=== PATIENT | female | born 1945 | race Caucasian/White ===

== ENCOUNTER 2020-03-08 15:31 | Outpatient (CLI) | payer BC, SELFPAY ==
--- NOTE | ~2020-03-08 | MM_ITS ---
EXAMINATION: MM screening [facility] BI w alex HISTORY: Screening mammogram TECHNIQUE: Craniocaudal and mediolateral oblique 3-D tomosynthesis images were obtained and synthetic 2-D images were generated. CAD analysis was submitted and interpreted. COMPARISON: 02/17/2019, 01/14/2018, 11/06/2016 bilateral digital screening mammogram examinations BREAST PARENCHYMAL COMPOSITION: There are scattered areas of fibroglandular density. FINDINGS: Occasional benign calcifications. There is no evidence of suspicious mass, calcification, o r architectural distortion to suggest malignancy in either breast. There has been no suspicious inter santana change. IMPRESSION: 1. No mammographic evidence of malignancy. 2. Recommend routine screening mammography in one year. BI-RADS Category 2: Benign finding(s). Reviewed, dictated and finalized at location A.
== END 2020-03-08 15:32 | disposition home or self-care (01) ==
PROVIDERS: PCP Internal Medicine; Visit Provider Obstetrics & Gynecology
DX: Z12.31 Encounter for screening mammogram for malignant neoplasm of breast (principal)
CPT/HCPCS: 77063; 77067

== ENCOUNTER 2021-04-19 12:44 | Outpatient (CLI) | payer BC, SELFPAY ==
--- NOTE | ~2021-04-19 | DEXA_ITS ---
Bone Density Report Name: Greta Leach Age: 76 Sex: Female Ethnicity: White Date of : 1945 Indication: postmenopausal osteoporosis; monitoring treatment; height loss; prior fracture; cancer; hysterectomy; Referring Provider: ALLISON WEST Study: Bone densitometry was performed. Exam Date: April 19, 2021 Accession number: [id number] Bone Density: Region BMD T-score Z-score Classification AP Spine (L1-L4) 0.864 -1.7 0.7 Osteopenia Femoral Neck (Left) 0.682 -1.5 0.5 Osteopenia Total Hip (Left) 0.904 -0.3 1.4 Normal Total Hip Bilateral Avg 0.869 -0.6 1.1 Normal Femoral Neck (Right) 0.677 -1.6 0.5 Osteopenia Total Hip (Right) 0.832 -0.9 0.8 Normal World Health Organization criteria for BMD impression classify patients as: Normal (T-score at or above -1.0), Osteopenia (T-score between -1.0 and -2.5), or Osteoporosis (T-score at or below -2.5). 10-year Fracture Risk: FRAX not reported because: Treated for osteoporosis Previous Exams: Region Exam Age BMD T-score BMD Change BMD Change Date g/cm2 vs Baseline vs Previous AP Spine(L1-L4) 04/19/2021 76 0.864 -1.7 0.090(11.6%)* 0.090(11.6%)* 04/23/2015 70 0.774 -2.5 Total Hip(Left) 04/19/2021 76 0.904 -0.3 -0.038(-4.0%)* 0.045(5.2%)# 06/10/2018 73 0.859 -0.7 -0.083(-8.8%)# -0.083(-8.8%)# 04/23/2015 70 0.941 0.0 Total Hip(Right) 04/19/2021 76 0.832 -0.9 -0.030(-3.5%)* -0.007(-0.9%)# 06/10/2018 73 0.839 -0.8 -0.023(-2.7%)# -0.023(-2.7%)# 04/23/2015 70 0.862 -0.7 *Denotes significance at 95% confidence level, LSC for AP Spine = 0.022 g/cm2, LSC for Total Hip = 0.027 g/cm2 Clinical Information Provided by Patient: Has had a low trauma fracture Is being treated for osteoporosis Has used the following medications: Fosamax (i.e. alendronate), Vitamin D, Calcium Has the following medical conditions: Cancer, Hysterectomy, melanoma Patient maximum height was 64 Menopause Age: 45 Onset of menses at age 15 Number of children 2 Impression: The patient has low bone mass, based on the Total Spine T-score. The patient has risk factors, including: previous fracture. No significant bone loss was observed. Discussion: PATIENT UNDER TREATMENT WITH NO SIGNIFICANT BMD LOSS SINCE LAST EXAM. In an untreated patient, BMD typically declines with age. A lack of decline or gain is usually a sign that treatment is efficacious and fracture risk is reduced. It is important to a
== END 2021-04-19 12:45 | disposition home or self-care (01) ==
PROVIDERS: PCP Physician Assistant; Visit Provider Obstetrics & Gynecology
DX: Z78.0 Asymptomatic menopausal state (principal); M85.88 Other specified disorders of bone density and structure, other site; M85.852 Other specified disorders of bone density and structure, left thigh; M85.851 Other specified disorders of bone density and structure, right thigh
CPT/HCPCS: 77080

== ENCOUNTER 2021-06-29 08:25 | Outpatient (CLI) | payer BC, SELFPAY ==
--- NOTE | ~2021-06-29 | MM_ITS ---
EXAMINATION: MM screening [facility] BI w alex HISTORY: Screening TECHNIQUE: Craniocaudal and mediolateral oblique 3-D tomosynthesis images were obtained and synthetic 2-D images were generated. CAD analysis was submitted and interpreted. COMPARISON: Comparison to multiple prior studies sequentially, with oldest reviewed study dated 10/23/2014. BREAST PARENCHYMAL COMPOSITION: There are scattered areas of fibroglandular density. FINDINGS: There is no evidence of suspicious mass, calcification, or architectural distortion to sugg est malignancy in either breast. There has been no suspicious interval change. IMPRESSION: 1. No mammographic evidence of malignancy. 2. Recommend routine screening mammography in one year. BI-RADS Category 1: Negative. Reviewed, dictated and finalized at location A.
== END 2021-06-29 08:26 | disposition home or self-care (01) ==
PROVIDERS: PCP Physician Assistant; Visit Provider Obstetrics & Gynecology
DX: Z12.31 Encounter for screening mammogram for malignant neoplasm of breast (principal)
CPT/HCPCS: 77063; 77067

== ENCOUNTER 2022-05-09 16:29 | Outpatient (CLI) | payer BC, SELFPAY ==
--- NOTE | ~2022-05-09 | XR_ITS ---
EXAM: XR wrist LT min 3V DATE: 05/09/2022 16:56 HISTORY: M25.432 - Effusion, left wrist, MEDIAL SIDED, HX ARTHRITIS . COMPARISON: None available. FINDINGS: Decreased mineralization. No fracture or dislocation. No lytic or blastic lesion. Severe n arrowing between the radius and lunate, with subchondral sclerosis and subchondral cyst formation. Ge neralized sclerosis of the lunate ulnar positive variance, with sclerosis along the distal ulna. No e rosion or periosteal change. Soft tissues within normal limits. 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 Reviewed, dictated and finalized at location K. 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
== END 2022-05-09 16:30 | disposition home or self-care (01) ==
PROVIDERS: PCP Internal Medicine; Visit Provider Physician Assistant
DX: M25.432 Effusion, left wrist (principal)
CPT/HCPCS: 73110

== ENCOUNTER 2023-02-14 14:25 | Outpatient (CLI) | payer BC, SELFPAY ==
--- NOTE | ~2023-02-14 | MM_ITS ---
EXAMINATION: MM screening [facility] BI w alex HISTORY: Screening mammogram TECHNIQUE: Craniocaudal and mediolateral oblique 3-D tomosynthesis images were obtained and synthetic 2-D images were generated. CAD analysis was submitted and interpreted. COMPARISON: 06/29/2021, 03/08/2022, bilateral screening mammogram examinations BREAST PARENCHYMAL COMPOSITION: There are scattered areas of fibroglandular density. FINDINGS: Chronic scattered bilateral benign calcifications. There is no evidence of suspicious mass, calcification, or architectural distortion to suggest malignancy in either breast. There has been no suspicious interval change. IMPRESSION: 1. No mammographic evidence of malignancy. 2. Recommend routine screening mammography in one year. BI-RADS Category 2: Benign finding(s). Reviewed, dictated and finalized at location A.
== END 2023-02-14 14:26 | disposition home or self-care (01) ==
LOC: ANHIMG 14:28
PROVIDERS: PCP Internal Medicine; Visit Provider Obstetrics & Gynecology
DX: Z12.31 Encounter for screening mammogram for malignant neoplasm of breast (principal)
CPT/HCPCS: 77063; 77067

== ENCOUNTER → 2023-08-14 14:43 | Outpatient (CLI) | payer BC, SELFPAY ==
--- NOTE | ~2023-08-14 | DEXA_ITS ---
Bone Density Report Name: MINE HAN Age: 78 Sex: Female Ethnicity: White Date of : 1945 Indication: postmenopausal; screening for osteoporosis; height loss; prior fracture; hysterectomy; Referring Provider: ALLISON WEST Study: Bone densitometry was performed. Exam Date: August 14, 2023 Accession number: [id number] Bone Density: Region BMD T-score Z-score Classification AP Spine (L1-L4) 0.891 -1.4 1.1 Osteopenia Femoral Neck (Left) 0.675 -1.6 0.6 Osteopenia Total Hip (Left) 0.817 -1.0 0.8 Normal Femoral Neck (Right) 0.619 -2.1 0.1 Osteopenia Total Hip (Right) 0.711 -1.9 0.0 Osteopenia Total Hip Mean 0.764 -1.5 0.4 Osteopenia World Health Organization criteria for BMD impression classify patients as: Normal (T-score at or above -1.0), Osteopenia (T-score between -1.0 and -2.5), or Osteoporosis (T-score at or below -2.5). 10-year Fracture Risk(1): Major Osteoporotic Fracture 21% Hip Fracture 5.3% Reported Risk Factors: [place] (), Neck BMD=0.619, BMI=26.1, previous fracture (1) FRAX(R) Version 3.08. Fracture probability calculated for an untreated patient. Fracture probability may be lower if the patient has received treatment. Clinical Information Provided by Patient: Has had a low trauma fracture Has used the following medications: Vitamin D, Calcium, MTV Has the following medical conditions: Hysterectomy Patient maximum height was 64.0 Menopause Age: 42 No regular weight bearing exercise Onset of menses at age 15 Number of children 2 Impression: The patient has low bone mass, based on the Right Femoral Neck T-score. The patient has an estimated ten-year risk of hip fracture of 5.3% and an estimated ten-year risk of major fracture of 21%, based on the WHO FRAX algorithm. The patient has risk factors, including: previous fracture. Discussion: BONE DENSITY IS LOW AT ONE OR MORE SKELETAL SITES. THE PATIENT'S BMD AND CLINICAL RISK FACTORS CONTRIBUTE TO THIS PATIENT'S HIGH RISK OF FRACTURE. This patient's lowest T-score is low at one or more skeletal sites. It meets the World Health Organization's (WHO) criteria for ?low bone mass? (T-score between -1.0 and -2.5). The patient's 10-year risk of hip fracture and 10 year risk of a major osteoporotic fracture as calculated by FRAX exceeds the threshold where pharmacological therapy is recommended by the National Osteoporosis Foundation (NOF). However, all treatment decisions require clinical judgment and consideration of individual patient factors, including patient preferences, comorbidities, previous drug use, risk factors not captured in the FRAX model (e.g., frailty, falls, vitamin D deficiency, increased bone turnover, interval significant decline in bone density) and possible under or overestimation of fracture risk b
== END ==
PROVIDERS: PCP Physician Assistant; Visit Provider Obstetrics & Gynecology
DX: M85.88 Other specified disorders of bone density and structure, other site (principal); M85.852 Other specified disorders of bone density and structure, left thigh; M85.851 Other specified disorders of bone density and structure, right thigh
CPT/HCPCS: 77080

== ENCOUNTER 2024-02-06 19:17 | Emergency (ER) | payer BC, SELFPAY ==
[2024-02-06 19:20] VITALS: BP 152/81; PULSE 88; RESP 15; TEMP 36.7; O2SAT 99
[2024-02-06 19:39] LABS: Basophils Percent Auto 0.2 % (0.2-1.2); Eosinophils Percent Auto 0.4 % (0-4.4); Hemoglobin 14.5 g/dL (12.0-15.0); Immature Granulocyte Absolute 0.02 K/mm3 (0.00-0.031); Immature Granulocyte Percent A 0.4 % (0-0.5); Lymphocytes Absolute Auto 1.05 K/mm3 (0.9-3.2); Lymphocytes Percent Auto 18.4 % (18.3-44.2); Mean Corpuscular HGB Conc 33.7 g/dl (32-36); Mean Corpuscular Hemoglobin 30.2 pg (26-34); Mean Corpuscular Volume 89.6 fl (80-100); Mean Platelet Volume 9.2 fl (7.4-10.4); Monocytes Absolute Auto 0.4 K/mm3 (0.1-0.6); Monocytes Percent Auto 6.8 % (2.6-8.5); Neutrophils Absolute Auto 4.2 K/mm3 (1.3-6.7); Neutrophils Percent Auto 73.8 % (45.5-73.1); Platelet Count Result 270 k/mm3 (150-375); Red Cell Distribution Width 12.9 % (11.5-14.5); White Blood Count 5.7 K/mm3 (4.5-10.0)
[2024-02-06 19:49] LABS: Alanine Aminotransferase 19 U/L (6-35); Albumin Level 4.2 g/dL (3.5-5.1); Alkaline Phosphatase 103 U/L (38-126); Anion Gap 6 mmol/L (4-12); Aspartate Amino Transferase 26 U/L (14-36); Bilirubin,Total 0.4 mg/dL (0.2-1.3); Blood Urea Nitrogen 13 mg/dL (7-17); Calcium 9.1 mg/dL (8.4-10.2); Carbon Dioxide 26 mmol/L (22-30); Chloride 103 mmol/L (98-107); Estimated CRCL calculation 66 ml/min; Estimated Glomerular Filt Rate > 60; Glucose 102 mg/dL (65-110); Lipase 102 U/L (23-300); Potassium 3.9 mmol/L (3.4-5.0); Sodium 135 mmol/L (137-145)
[2024-02-06] MEDS: SODIUM CHLORIDE 0.9% IV 1,000 ML 999 ML IV CONT ×2 (20:21→21:22)
[2024-02-06] MEDS: ONDANSETRON INJ 4 MG/2 ML VIAL IV PUSH (20:21)
--- NOTE | 2024-02-06 20:25 | ED.GENADULT ---
HPI - General Adult General Chief complaint: Nausea/Vomiting/Diarrhea Stated complaint: nausea, vomiting, diarrhea, headache Time Seen by Provider: 02/06/24 20:05 History of Present Illness HPI narrative: Patient is a 78-year-old female who presents emergency department this evening complaining of nausea, vomiting and diarrhea. Patient states that symptoms initially started on Sunday and lasted until Sunday. Patient started to feel much better on Sunday and then yesterday evening she when out and had a full dinner with her and when she went to sleep she woke up 5 in the morning and started having nausea, vomiting and diarrhea again. Patient states that her 13-year-old granddaughter has had similar symptoms and the school told that there are a lot of viruses going around. Patient denies any fevers or chills at home and denies any respiratory symptoms. She denies any chest pain and denies any abdominal pain at this time. No additional symptoms or concerns at this time. Related Data Home Medications Medication Instructions Recorded Confirmed multivitamin (Daily Multi-Vitamin 1 tablet PO DAILY 06/10/20 11/28/23 tablet) cholecalciferol (vitamin D3) 25 25 mcg PO DAILY 06/13/21 11/28/23 mcg (1,000 unit) capsule calcium carbonate (Calcium 600) 600 mg PO DAILY 06/05/22 11/28/23 acetaminophen 650 mg 650 mg PO Q12H 01/12/23 11/28/23 tablet,extended release (Tylenol Arthritis Pain) soft lens rinse,store solution 01/12/23 11/28/23 Allergies Allergy/AdvReac Type Severity Reaction Status Date / Time cephalexin Allergy Unknown Unknown Verified 02/06/24 20:20 Review of Systems Review of Systems: All systems are reviewed and are negative unless stated otherwise in the HPI. 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 Coronel at [facility] History of hysterectomy S/P right knee surgery Family History Family History Father Malignant neoplasm of prostate Family history of lung cancer Patient's father is , Onset Age: 75 Hypertension Mother Acute myocardial infarction, Onset Age: 76 Family history of congenital heart disease Family history of arthritis Hypertension Family history of type 2 diabetes mellitus Other Heart disease Social History Social History Smoking status: Never smoker Second hand tobacco smoke exposure: No Alcohol intake: current Substance use type: does not use Lack of Transportation: No Lack of Food: Never True Current Housing: I Have Housing Concerned About Future Housing: No Difficulty Paying Gas/Electric Bills: No Difficulty Paying for Meds: No Currently Unemployed: No Education: High School Diploma/GED Difficulty w/ Childcare or Family Care: No Occupation/Education: retired Gender identity (if verbalized by the patient): Female Sexual Orientation (if Verbalized by the Patient): Straight or Heterosexual Exam Narrative: General: Alert, awake, afebrile, in no acute distress. HEENT: PERRL, no rhinorrhea, no post nasal drip, oropharynx clear. Cardiovascular: Regular rate and rhythm, no murmurs, rubs or gallops, no periph
[2024-02-06 20:26] VITALS: PULSE 74; RESP 18; O2SAT 94
[2024-02-06 21:15] VITALS: BP 146/67; PULSE 64; RESP 13; O2SAT 94
[2024-02-06 21:27] LABS: Influenza A QL RT-PCR Negative (Negative); Influenza B QL RT-PCR Negative (Negative); RSV RNA, RT-PCR Negative (Negative); SARS-CoV-2 RNA PCR Negative (Negative)
[2024-02-06 21:56] LABS: Appearance Urine Clear (Clear); Bilirubin Urine Negative (Negative); Blood Urine Negative (Negative); Color Urine Yellow (Yellow); Glucose Urine UA Negative (Negative); Ketones Urine 1+ mg/dL (Negative); Leukocyte Esterase Ur Negative LEU/UL (Negative); Nitrate Urine Negative (Negative); Protein Urine Negative (Negative); Specific Grav Ur 1.006 (1.001-1.035); Urobilinogen Urine 0.2 mg/dL (<2.0); pH Urine 7.5 (5.0-9.0)
[2024-02-06 22:24] LABS: Add Urine Microscopic? NO
== END 2024-02-06 22:35 | disposition home or self-care (01) ==
PROVIDERS: Emergency Medicine; Emergency Provider Emergency Medicine; PCP Physician Assistant
DX: K52.9 Noninfective gastroenteritis and colitis, unspecified (principal); Z20.822 Contact with and (suspected) exposure to COVID-19; E78.00 Pure hypercholesterolemia, unspecified; E55.9 Vitamin D deficiency, unspecified; M19.032 Primary osteoarthritis, left wrist; M19.041 Primary osteoarthritis, right hand; Z85.820 Personal history of malignant melanoma of skin; Z98.49 Cataract extraction status, unspecified eye; Z90.710 Acquired absence of both cervix and uterus
CPT/HCPCS: 36415; 80053; 81003; 83690; 83735; 85025; 87637; 96361; 96374; 99284; J2405; J7030

== ENCOUNTER 2024-04-01 14:16 | Outpatient (CLI) | payer BC, SELFPAY ==
--- NOTE | ~2024-04-01 | XR_ITS ---
XR hip RT min 2V Ordering provider: Vinayak Loera APRN History: . M25.551 - Pain in right hip, LATERAL POSTERIOR PAIN, NO INJ . Comparison: None. FINDINGS: BONES: No acute fracture or dislocation. HIP JOINT SPACES: Normal. SACROILIAC JOINT SPACES/LUMBAR SPINE: The sacroiliac joint spaces are normal. Mild degenerative rodríguez es of the visualized lower lumbar spine. PUBIC SYMPHYSIS: Pubic symphysitis. SOFT TISSUES: Normal. IMPRESSION: No acute osseous abnormality pelvis and right hip. Reviewed, dictated and finalized at location A.
== END 2024-04-01 14:17 | disposition home or self-care (01) ==
PROVIDERS: PCP Nurse Practitioner; Visit Provider Nurse Practitioner
DX: M25.551 Pain in right hip (principal)
CPT/HCPCS: 73502

== ENCOUNTER 2024-04-10 13:27 | Outpatient (CLI) | payer BC, SELFPAY ==
--- NOTE | ~2024-04-10 | US_ITS ---
EXAMINATION: US soft tissue groin LT DATE: 04/10/2024 13:53 INDICATION: R19.09 - Other intra-abdominal and pelvic swelling, mass ... . TECHNIQUE: Grayscale and Doppler ultrasound images of the left groin were obtained. COMPARISON: None. FINDINGS: The region of clinical concern in the left groin was sonographically interrogated, revealin g no solid or cystic mass. No abnormality elicited with the Valsalva maneuver. IMPRESSION: No sonographic abnormality detected in the area of clinical concern. Reviewed, dictated and finalized at location K.
== END 2024-04-10 13:28 ==
LOC: MICIMG 13:28
PROVIDERS: PCP Nurse Practitioner; Visit Provider Nurse Practitioner Family
DX: R19.09 Other intra-abdominal and pelvic swelling, mass and lump (principal)
CPT/HCPCS: 76882

== ENCOUNTER 2024-04-29 12:19 | Outpatient (CLI) | payer BC, SELFPAY ==
--- NOTE | ~2024-04-29 | MM_ITS ---
EXAMINATION: MM screening [facility] BI w alex HISTORY: Screening TECHNIQUE: Craniocaudal and mediolateral oblique 3-D tomosynthesis images were obtained and synthetic 2-D images were generated. CAD analysis was submitted and interpreted. COMPARISON: Comparison to multiple prior studies sequentially, with oldest reviewed study dated 11/06. BREAST PARENCHYMAL COMPOSITION: Not dense: There are scattered areas of fibroglandular density. FINDINGS: There is no evidence of suspicious mass, calcification, or architectural distortion to sugg est malignancy in either breast. There has been no suspicious interval change. IMPRESSION: 1. No mammographic evidence of malignancy. 2. Recommend routine screening mammography in one year. BI-RADS Category 1: Negative Reviewed, dictated and finalized at location B.
== END 2024-04-29 12:20 ==
PROVIDERS: PCP Nurse Practitioner; Visit Provider Obstetrics & Gynecology
DX: Z12.31 Encounter for screening mammogram for malignant neoplasm of breast (principal)
CPT/HCPCS: 77063; 77067

== ENCOUNTER 2024-05-16 07:44 | Outpatient (CLI) | payer BC, SELFPAY ==
--- NOTE | 2024-05-16 07:52 | ECG_ITS ---
Test Date: 2024-05-16 07:57:45 Measurements Intervals [place] Rate: 62 P: 33 OR: 174 QRS: -6 QRSD: 91 T: 22 QT: 383 QTc: 389 Interpretive Statements SINUS RHYTHM MINIMAL VOLTAGE CRITERIA FOR LVH, CONSIDER NORMAL VARIANT [MEETS CRITERIA IN ONE OF: R(aVL), S(V1), R(V5), R(V5/V6)+S(V1)] No previous ECG available for comparison Electronically Signed On 05-17-2024 14:18:13 CDT by Homero Mendez M.D.
== END 2024-05-16 07:45 | disposition home or self-care (01) ==
PROVIDERS: PCP Nurse Practitioner; Visit Provider Surgery
DX: Z01.818 Encounter for other preprocedural examination (principal); I10 Essential (primary) hypertension; K40.90 Unilateral inguinal hernia, without obstruction or gangrene, not specified as recurrent; Z98.890 Other specified postprocedural states
CPT/HCPCS: 36415; 86850; 86870; 86880; 86900; 86901; 86902; 86906; 86971; 93005

== ENCOUNTER 2024-05-21 01:43 | Day surgery (SDC) | payer BC, SELFPAY ==
[2024-05-15 09:10] VITALS: BMI 25.8
--- NOTE | 2024-05-15 09:28 | PC.NURSE ---
Report to the Outpatient Waiting Room, entrance under the green pavilion located off [facility], at time __10:00am on date __05/21/24 . Planned Procedure Time: ___12:00pm .? Time changes happen often and if your time is changed the preop area will call you the afternoon before. - You and your visitor will be asked to self-screen and do not enter if you have any COVID symptoms. Please call surgeon if you need to reschedule. - A mask is optional within the hospital at this time. Patients may have clear liquids (water, carbonated beverages, clear teas, apple juice) until 3 hours prior to surgery ( 0900am) with a maximum of 20 ounces. - No food from midnight until time of surgery and no smoking Take only the following medications with a SIP of water on the morning of surgery: ___Tylenol if needed DO NOT STOP ANY OF YOUR OTHER PRESCRIPTION MEDICATIONS PRIOR TO SURGERY EXCEPT THE FOLLOWING Medications to discontinue per physician Hold all vitamins, supplements,probiotics 3 days prior to surgery per Anesthesia Date to take last dose___05/17/23 Please no make-up, nail latvian, hairspray, perfume, deodorant, or body powder the day of surgery.? No jewelry (including any body piercings) or valuables the day of surgery, leave them at home.? Please take a shower or bath the night before, or the morning of, surgery with an antibacterial soap.? Wear comfortable, loose fitting clothing.? Children are encouraged to wear pajamas. - Jewelry must be removed prior to entering the operating room.? Rings and piercings that are not removed may be cut off. - The hospital will not accept responsibility for valuables.? - Please leave all valuables, including medications, at home the day of surgery. If you are going home after surgery, a licensed local company intermodal truck driver must drive you home.? - NO public transportation without another adult if you receive anesthesia. - We recommend that an adult stay with you for 24 hours following discharge. - We also recommend that you do not drive, make important decision, drink alcoholic beverages, or take any drugs that were not prescribed by your health care provider for at least 24 hours after your discharge time. Follow any additional instructions given to you from your surgeon. Telephone instructions given to patient and asked if any additional questions and then verbalized understanding. Patient advised to call surgeon office or pre surgery nurse liaison [phone] if any additional questions.
[2024-05-21] VITALS (11 sets, daily range): BP systolic 112–155; BP diastolic 53–73; PULSE 58–74; RESP 10–20; TEMP 36.2–36.6; O2SAT 93–100
--- NOTE | 2024-05-21 10:08 | WPDHPUPDATE1 ---
History and Physical Update Update Date/Time: 05/21/24 10:08 History and Physical has been reviewed, including an updated exam of the patient. There are NO changes in the patient's condition. Risks, benefits, and alternatives have been discussed and questions answered. Patient agrees to proceed with procedure.
[2024-05-21] MEDS: LACTATED RINGERS 1,000 ML 30 ML IV CONT ×2 (10:15→12:02)
[2024-05-21] MEDS: KETOROLAC 15 MG/ML VIAL (*BKC) IV PUSH (10:18)
--- NOTE | 2024-05-21 10:24 | WPDANESEPPF ---
Anes - Initial Pre Proc Eval Procedure: Operation Date: 05/21/24 12:00 Proposed Procedures p Laparoscopic Left Inguinal Hernia Repair with Mesh, Davinci Assisted - Matti Correa DO Date/Time: 05/21/24 10:24 Surgeon: Matti Correa DO Pre Op Diagnosis: Left Inguinal Hernia Patient Data Age: 79 Gender: F Height: 1.57 m Weight: 64 kg Allergies Allergy/AdvReac Type Severity Reaction Status Date / Time cephalexin Allergy Intermediate rash , Verified 05/21/24 09:54 swelling Home Medications Medication Instructions Recorded Confirmed Type multivitamin (Daily Multi-Vitamin 1 tablet PO DAILY 06/10/20 05/21/24 History tablet) cholecalciferol (vitamin D3) 25 25 mcg PO DAILY 06/13/21 05/21/24 History mcg (1,000 unit) capsule calcium carbonate (Calcium 600) 600 mg PO DAILY 06/05/22 05/21/24 History acetaminophen 650 mg 650 mg PO Q12H 01/12/23 05/21/24 History tablet,extended release (Tylenol Arthritis Pain) soft lens rinse,store solution 01/12/23 04/24/24 History lisinopril 10 mg tablet 10 mg PO DAILY #90 tabs 07/15/23 05/21/24 Rx pravastatin 40 mg tablet 40 mg PO DAILY #90 tabs 08/11/23 05/21/24 Rx omeprazole 40 mg capsule,delayed 40 mg PO DAILY #90 caps 10/07/23 05/21/24 Rx release meloxicam 15 mg tablet 15 mg PO DAILY PRN pain, mild #90 04/28/24 05/21/24 Rx tabs mecobalamin (vitamin B12) 1,000 1,000 mcg PO DAILY 05/15/24 05/21/24 History mcg chewable tablet (B12 Active) Laboratory Tests 05/16/24 08:06 Enhanced Crossmatch See Detail Patient hx anesthesia problems: post op nausea/vomiting Family hx anesthesia problems: none Results Review: All pre-operative results and documents have been reviewed as part of the pre-operative evaluation. 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 Coronel at [facility] History of hysterectomy S/P right knee surgery Family History Family History Father Malignant neoplasm of prostate Family history of lung cancer Patient's father is , Onset Age: 75 Hypertension Mother Acute myocardial infarction, Onset Age: 76 Family history of congenital heart disease Family history of arthritis Hypertension Family history of type 2 diabetes mellitus Other Heart disease Social History Social History Smoking status: Never smoker Second hand tobacco smoke exposure: No Alcohol intake: current Drinks per week: 1 Substance use type: does not use Lack of Transportation: No Lack of Food: Never True Current Housing: I Have Housing Concerned About Future Housing: No Difficulty Paying Gas/Electric Bills: No Difficulty Paying for Meds: No Currently Unemployed: No Education: High School Diploma/GED Difficulty w/ Childcare or Family Care: No Living arrangements: with family Additional living arrangements comments: [place] Occupation/Education: retired Gender identity (if verbalized by the patient): Female Sexual Orientation (if Verbalized by the Patient): Straight or Heterosexual Spiritual care concerns: No Anes - Eval Final PreProcedure D
[2024-05-21] MEDS: CLINDAMYCIN 900 MG/D5W 50 ML 900 MG/50 ML PIGGYBACK 50 MG IVPB (10:36)
[2024-05-21] MEDS: BUPIVACAINE/EPINEPHRINE 0.5% 10 ML VIAL 30 ML INFILTRATE (11:04)
--- NOTE | 2024-05-21 11:59 | W.PM.PROC2 ---
Procedure Note - Detailed Date of Procedure 05/21/24 Pre-op Diagnosis Left Inguinal Hernia Post-op Diagnosis Other (Bilateral inguinal hernia (direct)) Procedure Performed Laparoscopic bilateral inguinal hernia repair with mesh, da Mily assisted Surgeon Matti Correa DO Anesthesia General and Local (0.5% bupivacaine with epinephrine) Indications This is a 79-year-old woman who presented with a left groin mass. This was a palpable bulge but did seem to reduce when laying down. She was having some discomfort in this area as well. An ultrasound was obtained which showed evidence of a fat containing left inguinal hernia. Discussions were made with the patient about treatment options and decision made to proceed with robotic assisted laparoscopic left inguinal hernia repair with mesh. Findings Upon inspecting the abdomen laparoscopically, the patient did have a moderate-sized direct left inguinal hernia containing preperitoneal fat. She also had a small direct right inguinal hernia containing preperitoneal fat. Decision was made to repair bilateral inguinal hernias. A robotic transabdominal preperitoneal approach was utilized for repair. Once a wide enough preperitoneal pocket was created, I then placed large 3DMax mid mesh overlying each myopectineal orifice. No specimens were obtained for pathology. Description of Procedure Procedure as well as risks, benefits, and alternatives were discussed with the patient. Written consent was obtained and placed in chart prior to procedure. Patient was brought back to surgical suite. She was placed supine on operating table. Time-out was done to confirm patient and procedure. She was then intubated by Anesthesia Department. Her abdomen was prepped and draped in sterile fashion using chlorhexidine prep. 0.5% bupivacaine with epinephrine was infiltrated at each location for incision. An 8 mm incision was made in the left lateral abdomen, and a 5 mm Optiview trocar was advanced through the abdominal layers under direct visualization. Once inside the abdominal cavity, carbon dioxide insufflation was used to create a pneumoperitoneum. A camera was inserted and the abdominal cavity was inspected. The patient was placed in slight Trendelenburg position. An 8 millimeter incision was made on the right lateral abdomen and an 8 millimeter trocar was inserted under direct visualization. Another 8 millimeter incision was made just superior to the umbilicus and an 8 millimeter trocar was inserted under direct visualization. The 5 mm port was then removed and this was replaced with another 8 mm robotic port. The robotic arms were brought up to the patient's bedside and secured to the ports. The camera and instruments were inserted. I then moved over to the robotic console and took control of the camera and instruments. After careful inspection of the abdominal cavity, I began scoring the peritoneum along the left lower quadrant using scissors with electrocautery. The preperitoneal plane was entered and this was carefully dissected caudally along the inferior epigastric vessels. Careful dissection with scissors with electrocautery and blunt dissection was used to continue this dissection. I dissected far enough laterally to allow for mesh placement, and also dissected medially to identify the pubic arch and Johnny's ligament. The hernia sac was identified and carefully dissected posteriorly. The round ligament also identified and the peritoneum was carefully dissected far enough posteriorly to allow for mesh placement. I transected the round ligament near the deep inguinal region to allow for mesh to sit in proper position. Once an adequate pocket was created, I then placed the mesh within the preperitoneal pocket and carefully unfolded it. The mesh was centered on the hernia defect with adequate overlap circumferentially. The inferior edge of the mesh was inspected to ensure that it was far enough away from the rico
[2024-05-21] MEDS: oxyCODONE HCL (*CRX) 5 MG TAB IR PO (13:41)
== END 2024-05-21 14:13 | disposition home or self-care (01) ==
PROVIDERS: PCP Nurse Practitioner; Visit Provider Surgery
PROC: 8E0Y4CZ Robotic Assisted Procedure of Lower Extremity, Percutaneous Endoscopic Approach (ICD-10-PCS; CPT 49650; principal; 2024-05-21 12:00)
DX: K40.20 Bilateral inguinal hernia, without obstruction or gangrene, not specified as recurrent (principal); E78.00 Pure hypercholesterolemia, unspecified; E55.9 Vitamin D deficiency, unspecified
CPT/HCPCS: 49650; S2900; 36415; 86922; A9270; C1781; J1170; J1596; J1885; J2371; J2405; J2704; J3010; J7120

== ENCOUNTER 2024-10-23 12:30 | Outpatient (RCR) | payer MEDICARE, SELFPAY ==
--- NOTE | 2024-08-26 10:57 | OPREHPOC ---
Outpatient Therapy Plan of Care This is a Multidisciplinary Plan of Care that may contain components documented by all disciplines (PT, OT, and ST.) PT Problem 1 PT Problem #1 Knowledge Deficit PT Goal 1 Goal / Goal Update 1. Patient will perform independent HEP 2. Patient will verbalize urge suppression strategies Target Visit 3 PT Problem 2 PT Problem #2 Pain PT Goal 1 Goal / Goal Update 1. Back pain no higher than 4/10 with ADL's Target Visit 5 PT Problem 3 PT Problem #3 Impaired Strength PT Goal 1 Goal / Goal Update 1. Pelvic floor strength to 4/5 to reduce incontinence 2. Pelvic floor endurance to 10 seconds to reduce incontinence 3. Hip MMT 5/5 in all planes to reduce back pain Target Visit 5 PT Problem 4 PT Problem #4 Impaired Functional ADLs PT Goal 1 Goal / Goal Update 1. Patient will report incontinence no more than 1 time a week 2. Patient will void no more than 8 times a day Target Visit 5
--- NOTE | 2024-08-26 10:58 | PTOPEVAL1 ---
Assessment and note entered by Ning Carrizales DPT Evaluation Information Assessment Status Evaluation Diagnosis n81.89, n 81.10 ICD-10 Condition Codes (PT) Pain in low back M54.50,Pain in right hip M25.551, Weakness R53.1,Stress incontinence N39.3 Subjective Information Pt reports she had bilateral inguinal hernias repaired in May and has been noticing ongoing pelvic pressure since April. Has had stinging/burning and frequent urination but negative for UTI. Feels some heaviness that increases throughout the day. 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 Voids more than 10 times a day, reports feeling like she needs to void all the time but has sensation of incomplete emptying. Can hold up to 30 minutes to void depending on situation. Voids every 2 hours at night. Has recently started wearing liners and uses 6-7 a day. Small dribbles of urinary incontinence throughout the day. Denies pain with urination itself. BM once a day, no issues. No significant history of pelvic pain. Does have back pain that is worst in the morning, 8/10 highest and 1-2/10 lowest. Uses a cane at night due to back pain and neuropathy. Partial hysterectomy in her early 40's due to endometriosis. No b/b history. Pt has been 2 times, vaginal deliveries without complication. Patient goal: get rid of discomfort, see if this helps Diet: drinks mostly water, 2 12 ounce cans of Coke a day, sometimes iced tea instead of Coke. Milk and juice occasionally. Does not always eat 3 meals a day, will eat breakfast or lunch and then dinner. Sometimes snacks in the evening No return to MD scheduled currently. Reported Pain Level Pain Score 2: Self Report Assessment PT Clinical Summary The patient is presenting to skilled therapy with a history of low back pain, urinary incontinence, and pelvic organ prolapse. She presents with decreased hip and core strength as well as decreased pelvic floor strength and endurance. These impairments are contributing to her daily incontinence, low back pain, and symptoms of prolapse with fatigue as the day progresses. She will highly benefit from therapy to address pain and incontinence in order to maximize function. Plan of Care Interventions Electrical Stimulation,Hot Pack/Cold Pack,Manual Therapy,Neuro Re-education,Patient/Caregiver Education,Therapeutic Activities,Therapeutic Exercise PT Services Indicated Yes Treatment Frequency and 1 time a week for 5 visits Duration These treatments will address the objective and functional deficits as defined above. The patient will be advanced safely and appropriately in order for the patient to progress towards his/her prior level of function. Additional exercises will be introduced and as well as a comprehensive home exercise program upon discharge, if needed, ?to ensure carryover of functional gains achieved in the clinic. This treatment plan has been reviewed and agreement upon by the patient.
--- NOTE | 2024-09-08 08:14 | PCPTNOTE ---
Patient called to cancel appointment due to having pneumonia.
--- NOTE | 2024-09-25 14:38 | OPREHPOC ---
Outpatient Therapy Plan of Care This is a Multidisciplinary Plan of Care that may contain components documented by all disciplines (PT, OT, and ST.) PT Problem 1 PT Problem #1 Knowledge Deficit PT Goal 1 Goal / Goal Update 1. Patient will perform independent HEP 2. Patient will verbalize urge suppression strategies Target Visit 3 Progress Met PT Problem 2 PT Problem #2 Pain PT Goal 1 Goal / Goal Update 1. Back pain no higher than 4/10 with ADL's Target Visit 9 Progress Not Met PT Problem 3 PT Problem #3 Impaired Strength PT Goal 1 Goal / Goal Update 1. Pelvic floor strength to 4/5 to reduce incontinence 2. Pelvic floor endurance to 10 seconds to reduce incontinence 3. Hip MMT 5/5 in all planes to reduce back pain update 09/25/24 1. met 2. met 3. 4/5 lowest Target Visit 9 Progress Partially Met PT Problem 4 PT Problem #4 Impaired Functional ADLs PT Goal 1 Goal / Goal Update 1. Patient will report incontinence no more than 1 time a week 2. Patient will void no more than 8 times a day Target Visit 5 Progress Met
--- NOTE | 2024-09-25 14:39 | PTOPPROG ---
Assessment and note entered by Ning Carrizales DPT Evaluation Information Assessment Status Progress Diagnosis n81.89, n 81.10 ICD-10 Condition Codes (PT) Pain in low back M54.50,Pain in right hip M25.551, Weakness R53.1,Stress incontinence N39.3 Subjective Information Pt feels some improvements with therapy and I don 't feel like there's any pressure most of the time . Minimal pressure with bending over at the end of the day but nothing like it was. Also reports her urinary urgency has improved. Has not noticed prolapse out of her vagina as much as well. Voiding 8 times a day and can easily hold urge to void 30 minutes. No incontinence over the last week. Does think her back pain is about the same, 7-8/10 highest and 1/10 lowest. Assessment PT Clinical Summary The patient has made excellent progress in therapy so far. She reports no incontinence in the last week, has been able to hold urinary urge at least 30 minutes, and reports reduced pressure and symptoms of prolapse. She demonstrates improved core and pelvic floor strength and endurance. She does continue to display hip weakness and report low back pain and will benefit from further therapy to address back pain and function at home. Plan of Care Interventions Electrical Stimulation,Hot Pack/Cold Pack,Manual Therapy,Neuro Re-education,Patient/Caregiver Education,Therapeutic Activities,Therapeutic Exercise PT Services Indicated Yes Treatment Frequency and 1 time a week for 4 visits Duration These treatments will address the objective and functional deficits as defined above. The patient will be advanced safely and appropriately in order for the patient to progress towards his/her prior level of function. Additional exercises will be introduced and as well as a comprehensive home exercise program upon discharge, if needed, ?to ensure carryover of functional gains achieved in the clinic. This treatment plan has been reviewed and agreement upon by the patient.
--- NOTE | 2024-10-23 13:04 | OPREHPOC ---
Outpatient Therapy Plan of Care This is a Multidisciplinary Plan of Care that may contain components documented by all disciplines (PT, OT, and ST.) PT Problem 1 PT Problem #1 Knowledge Deficit PT Goal 1 Goal / Goal Update 1. Patient will perform independent HEP 2. Patient will verbalize urge suppression strategies Target Visit 3 Progress Met PT Problem 2 PT Problem #2 Pain PT Goal 1 Goal / Goal Update 1. Back pain no higher than 4/10 with ADL's Target Visit 9 Progress Met PT Problem 3 PT Problem #3 Impaired Strength PT Goal 1 Goal / Goal Update 1. Pelvic floor strength to 4/5 to reduce incontinence 2. Pelvic floor endurance to 10 seconds to reduce incontinence 3. Hip MMT 5/5 in all planes to reduce back pain update 09/25/24, 10/23/24 1. met 2. met 3. 4/5 lowest Target Visit 9 Progress Partially Met PT Problem 4 PT Problem #4 Impaired Functional ADLs PT Goal 1 Goal / Goal Update 1. Patient will report incontinence no more than 1 time a week 2. Patient will void no more than 8 times a day Target Visit 5 Progress Met
--- NOTE | 2024-10-23 13:04 | PTOPDC ---
Assessment and note entered by Ning Carrizales DPT Evaluation Information Assessment Status Discharge Diagnosis n81.89, n 81.10 ICD-10 Condition Codes (PT) Pain in low back M54.50,Pain in right hip M25.551, Weakness R53.1,Stress incontinence N39.3 Subjective Information Highest back pain 4-5/10 only early in the morning getting out of bed. Lowest pain 0/10. Has not recently noticed pressure from prolapse and no incontinence. Also thinks she is not voiding as much. Can wait 3-4 hours in between voiding. Reported Pain Level Pain Score 0: Self Report Assessment PT Clinical Summary The patient has made excellent progress in therapy . She continues to report no incontinence or symptoms of prolapse. She also reports her back pain has greatly decreased and demonstrates improved hip strength. Discharge is recommended at this time, patient to follow up if pain increases over the next month. She has been educated in a thorough HEP. Plan of Care PT Services Indicated No
== END 2024-10-23 14:25 | disposition home or self-care (01) ==
LOC: ANHPT 12:30
PROVIDERS: PCP Nurse Practitioner; Visit Provider Obstetrics & Gynecology
DX: N81.89 Other female genital prolapse (principal); N81.10 Cystocele, unspecified; M25.551 Pain in right hip; M54.50 Low back pain, unspecified
CPT/HCPCS: 97110; 97112; 97140; 97161; 97530

== ENCOUNTER 2025-05-12 11:58 | Emergency (ER) | payer MEDICARE, SELFPAY ==
[2025-05-12] VITALS (24 sets, daily range): BP systolic 122–153; BP diastolic 58–77; PULSE 57–79; RESP 6–26; O2SAT 84–100
--- NOTE | ~2025-05-12 | XR_ITS ---
XR hip RT 2V w AP pelvis, XR femur RT min 2V 05/12/2025 13:00 Indication: Right hip pain after fall Procedure: 4 views right femur and 3 views right hip Comparison: No prior studies for comparison. Findings: There is a transversely oriented nondisplaced right proximal femoral metadiaphyseal fracture with approximately 90 degrees varus angulation. Impression: 1: Displaced, angulated right proximal femoral metadiaphyseal fracture. Reviewed, dictated and finalized at location O. Impression: 1: Displaced, angulated right proximal femoral metadiaphyseal fracture. Impression: 1: Displaced, angulated right proximal femoral metadiaphyseal fracture.
--- NOTE | ~2025-05-12 | XR_ITS ---
EXAMINATION: XR chest 1V 05/12/2025 13:00 INDICATION: Preop PROCEDURE: AP view of the chest COMPARISON: No prior studies for comparison. FINDINGS: The lungs are clear. The cardiomediastinal silhouette is within normal limits. There are no pleural effusions. There is no pneumothorax suspected. IMPRESSION: 1: NO ACUTE CARDIOPULMONARY DISEASE. Reviewed, dictated and finalized at location O.
--- NOTE | 2025-05-12 12:03 | ECG_ITS ---
Test Date: 2025-05-12 13:04:51 Measurements Intervals [place] Rate: 58 P: 40 AR: 169 QRS: 13 QRSD: 85 T: 55 QT: 395 QTc: 389 Interpretive Statements SINUS BRADYCARDIA NONSPECIFIC T-WAVE ABNORMALITY- HIGH LATERAL LEADS BASELINE ARTIFACT- I, II, AVR, AVL, AVF BORDERLINE ECG Compared to ECG 05/16/2024 07:57:45 NO SIGNIFICANT CHANGE Electronically Signed On 05-12-2025 13:08:24 CDT by Kris Jenkins D.O.
[2025-05-12] MEDS: HYDROmorphone HCL INJ (*CRX) 1 MG/ML SYR 0.5 MG IV PUSH ×4 (12:10→17:07)
[2025-05-12 12:18] LABS: Hematocrit 42.8 % (37.0-47.0); Hemoglobin 14.0 g/dL (12.0-15.0); Immature Granulocyte Percent A 0.6 % (0-0.5); Lymphocytes Absolute Auto 1.99 K/mm3 (0.9-3.2); Mean Corpuscular HGB Conc 32.7 g/dl (32-36); Mean Corpuscular Hemoglobin 30.1 pg (26-34); Mean Corpuscular Volume 92.0 fl (80-100); Nucleated Red Blood Cells Absolute Auto 0.000 K/mm3 (0.0-0.012); Nucleated Red Blood Cells Perc 0.0 % (0.0-0.2); Platelet Count Result 300 k/mm3 (150-375); Red Blood Count 4.65 M/mm3 (4.2-5.4); White Blood Count 6.6 K/mm3 (4.5-10.0)
[2025-05-12] MEDS: ONDANSETRON INJ 4 MG/2 ML VIAL IV PUSH ×2 (12:25→17:07)
[2025-05-12 12:30] LABS: Alanine Aminotransferase 26 U/L (6-35); Albumin Level 4.2 g/dL (3.5-5.1); Alkaline Phosphatase 117 U/L (38-126); Anion Gap 10 mmol/L (4-12); Aspartate Amino Transferase 34 U/L (14-36); Bilirubin,Total 0.3 mg/dL (0.2-1.3); Blood Urea Nitrogen 17 mg/dL (7-17); Calcium 9.6 mg/dL (8.4-10.2); Carbon Dioxide 22 mmol/L (22-30); Chloride 106 mmol/L (98-107); Estimated CRCL calculation 58 ml/min; Estimated Glomerular Filt Rate > 60; Glucose 140 mg/dL (65-110); Potassium 4.4 mmol/L (3.4-5.0); Sodium 138 mmol/L (137-145); Total Protein 7.1 g/dL (6.3-8.2)
[2025-05-12 12:31] LABS: INR 1.0; Prothrombin Time 12.9 Seconds (11.1-14.7)
[2025-05-12 12:32] LABS: Partial Thromboplastin Time 27.9 Seconds (22.3-36.8)
--- NOTE | 2025-05-12 13:14 | ED_ITS ---
HPI - Extremity Injury (Lower) General Chief Complaint: Extremity Injury, Lower Stated Complaint: right hip pain after fall Time Seen by Provider: 05/12/25 12:59 Source: patient Mode of arrival: EMS Limitations: no limitations History of Present Illness HPI Narrative: Patient is a 80-year-old female, with past medical history of hypertension, osteoporosis, who presents the ED via EMS with report of right hip pain status post fall. Patient reports she was swinging her grandson and lost her balance falling backwards onto her right hip. Complains of pain to her right hip, unable to ambulate. EMS was notified. Shortening and external rotation noted. Patient denies any other areas of pain. Denies head injury or LOC. Denies numbness. She is not on any anticoagulation. Related Data Home Medications ?Medication ?Instructions ?Recorded ?Confirmed ?Last Taken ?Type multivitamin (Daily Multi-Vitamin 1 tablet PO DAILY 04/10/25 05/17/24 History tablet) cholecalciferol (vitamin D3) 25 25 mcg PO DAILY 04/10/25 05/17/24 History mcg (1,000 unit) capsule calcium carbonate (Calcium 600) 600 mg PO DAILY 04/10/25 05/17/24 History acetaminophen 650 mg 650 mg PO Q12H 01/12/2303/1805/21/24 07:30 History tablet,extended release (Tylenol Arthritis Pain) mecobalamin (vitamin B12) 1,000 1,000 mcg PO DAILY 04/10/25 05/17/24 History mcg chewable tablet (B12 Active) Allergies Allergy/AdvReac Type Severity Reaction Status Date / Time cephalexin Allergy Intermediate rash , Verified 04/10/25 07:49 swelling Review of Systems 2 Review of Systems: All systems reviewed & are unremarkable except as noted in HPI. 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 05/21/24 Matti Correa. DO History of hysterectomy S/P right knee surgery History of eye surgery Cataract surgery 2020 Dr. Coronel at [facility] History of bilateral tubal ligation Family History Family History Father Malignant neoplasm of prostate Family history of lung cancer Patient's father is , Onset Age: 75 Hypertension Mother Acute myocardial infarction, Onset Age: 76 Family history of congenital heart disease Family history of arthritis Hypertension Family history of type 2 diabetes mellitus Other Heart disease Social History Social History Smoking status: Never smoker Second hand tobacco smoke exposure: No Alcohol intake: current Drinks per week: 1 Substance use type: does not use Do You Feel Safe in your Home?: Yes Lack of Transportation: No Lack of Food: Never True Current Housing: I Have Housing Concerned About Future Housing: No Difficulty Paying Gas/Electric Bills: No Difficulty Paying for Meds: No Currently Unemployed: No Education: High School Diploma/GED Difficulty w/ Childcare or Family Care: No Living arrangements: with family Additional living arrangements comments: [place] Occupation/Education: retired Gender identity (if verbalized by the patient): Female Sexual Orientation (if Verbalized by the Patient): Straight or Heterosexual Spiritual care concerns: No Exam 2 Narrative: GENERAL: Well appearing, well-nourished, non-toxic, in no acute distress. HEAD: Normocephalic, atraumatic. RESPIRATORY: Airway patent, respirations nonlabored. Clear to auscultation bilaterally, no rales, rhonchi, wheezing. CARDIOVASCULAR: Regular rate and rhythm without murmurs, rubs, or gallops. MUSCULOSKELETAL: Shortening and external rotation noted to right lower extremity. Unable to move right lower extremity due to pain. Fullness and right lateral hip joint region with focal tenderness to palpation. Sensation intact throughout extremity. Pedal pulses are intact. SKIN: Warm, dry, normal color. NEURO: A&O X3. Speech clear. No ataxic movements. PSYCHIATRIC: Appropriate mood and affect. Normal interaction. Course Vital Signs Vital signs: Vital Signs Pulse Rate 79 05/12/25 12:06 Respiratory Rate 20 05/12/25 12:06 Pulse Oximetry 100 05/12/25 12:06 Pulse Rate 69 05/12/25 15:46 Respiratory Rate 23 H 05/12/25 15:46 Blood Pressure 140/66 05/12/25 15:46 Pulse Oximetry 100 05/12/25 15:46 MDM - Extremity Injury (Lower) MDM Narrative Medical decision making narrative: Patient presented to ED status post mechanical fall with pain to R hip. Deformity noted. Unable to ambulate. Vital signs are stable upon arrival. Patient denies any other injuries. Denies head injury or LOC. X-ray of right hip/pelvis: Displaced, angulated right proximal femoral metadiaphyseal fracture. Consistent with clinical picture. Discussed imaging findings with patient. Discussed case with Dr. Alejandre, orthopedics, recommended transfer to tertiary center. Patient willing to go to [facility]. [facility] orthopedics currently in surgery and unable to consult until finished. Discussed with Dr. Konrad Alexander, orthopedics [facility], accepted patient for transfer/consult, send to ED. Discussed case with Dr. Mathews, EDP @ [facility], accepted patient for transfer. Patient in agreement with plan and need for transfer. Medical Records Attestation: I reviewed the patient's medical records. Lab Data Attestation: I reviewed the patient's lab results. 05/12/25 12:11 05/12/25 12:11 Labs: Lab Results 05/12/25 05/12/25 Range/Units 12:11 12:11 WBC 6.6 (4.5-10.0) K/mm3 RBC 4.65 (4.2-5.4) M/mm3 Hgb 14.0 (12.0-15.0) g/dL Hct 42.8 (37.0-47.0) % MCV 92.0 (80-100) fl MCH 30.1 (26-34) pg MCHC 32.7 (32-36) g/dl RDW 12.7 (11.5-14.5) % Plt Count 300 (150-375) k/mm3 MPV 9.3 (7.4-10.4) fl Immature Gran % (Auto) 0.6 H (0-0.5) % Neut % (Auto) 57.6 (45.5-73.1) % Lymph % (Auto) 30.0 (18.3-44.2) % [place] % (Auto) 8.3 (2.6-8.5) % Eos % (Auto) 2.7 (0-4.4) % Baso % (Auto) 0.8 (0.2-1.2) % Lymph # (Auto) 1.99 (0.9-3.2) K/mm3 [place] # (Auto) 0.6 (0.1-0.6) K/mm3 Eos # (Auto) 0.2 (0-0.3) K/mm3 Baso # (Auto) 0.1 (0.0-0.1) K/mm3 Abs Immat Gran (auto) 0.04 H (0.00-0.031) K/mm3 Absolute Neuts (auto) 3.8 (1.3-6.7) K/mm3 Absolute Nucleated RBC 0.000 (0.0-0.012) K/mm3 Nucleated RBC % 0.0 (0.0-0.2) % PT 12.9 (11.1-14.7) Seconds INR 1.0 APTT 27.9 (22.3-36.8) Seconds Sodium 138 (137-145) mmol/L Potassium 4.4 (3.4-5.0) mmol/L Chloride 106 (98-107) mmol/L Carbon Dioxide 22 (22-30) mmol/L Anion Gap 10 (4-12) mmol/L BUN 17 (7-17) mg/dL Creatinine 0.56 L (0.7-1.0) mg/dL Estim Creat Clear Calc 58 ml/min Estimated GFR > 60 (59 - ) Glucose 140 H (65-110) mg/dL Calcium 9.6 (8.4-10.2) mg/dL Total Bilirubin 0.3 (0.2-1.3) mg/dL AST 34 (14-36) U/L ALT 26 (6-35) U/L Alkaline Phosphatase 117 (38-126) U/L Total Protein 7.1 (6.3-8.2) g/dL Albumin 4.2 (3.5-5.1) g/dL Blood Type O Negative Antibody Screen Positive Antibody Identification Anti-C Anti-D Antigen Identification Not Reportable IFRAH, IgG Interpret Not Performed IFRAH, Poly Interpret Negative IFRAH, Complement Interp Not Performed Imaging Data Attestation: I personally reviewed and interpreted this imaging study as follows: Radiologist's impression: ITS Impressions Chest X-Ray 05/12/25 13:01 IMPRESSION: 1: NO ACUTE CARDIOPULMONARY DISEASE. Femur X-Ray 05/12/25 13:01 Impression: 1: Displaced, angulated right proximal femoral metadiaphyseal fracture. Hip/Pelvis X-Ray 05/12/25 13:01 Impression: 1: Displaced, angulated right proximal femoral metadiaphyseal fracture. ECG Data EKG #1: Attestation: I personally reviewed and interpreted this ECG as follows: ECG completion date: 05/12/25 ECG completion time: 13:04 EKG Interpretation: bradycardia (58), sinus rhythm and non-specific ST changes Discharge Plan Discharge Clinical Impression: Fall from ground level Fracture of proximal end of femur Qualifiers: Encounter type: initial encounter Fracture type: closed Laterality: right Q ualified Code(s): S72.001A - Fracture of unspecified part of neck of right femur, initial encounter for closed fracture Patient Disposition: Acute Care Hospital Condition: Stable Patient Language: Citizen Of [place] Prescriptions: No Action lisinopril 10 mg tablet 10 mg PO DAILY Qty: 90 3RF pravastatin 40 mg tablet 40 mg PO DAILY Qty: 90 3RF multivitamin [Daily Multi-Vitamin] Tablet 1 tablet PO DAILY cholecalciferol (vitamin D3) 25 mcg (1,000 unit) capsule 25 mcg PO DAILY calcium carbonate [Calcium 600] 600 mg calcium (1,500 mg) tablet 600 mg PO DAILY acetaminophen [Tylenol Arthritis Pain] 650 mg tablet extended release 650 mg PO Q12H mecobalamin (vitamin B12) [B12 Active] 1,000 mcg Tablet,Chewable 1,000 mcg PO DAILY omeprazole 40 mg capsule,delayed release(DR/EC) 40 mg PO DAILY Qty: 90 1RF ibandronate 150 mg tablet 150 mg PO MONTHLY Qty: 3 0RF meloxicam 15 mg tablet See Rx Instructions .ROUTE .COMPLEX Qty: 90 0RF Dose Instruction: TAKE 1 TABLET BY MOUTH ONCE DAILY NEEDED FOR MILD PAIN Rx Instructions: TAKE 1 TABLET BY MOUTH ONCE DAILY NEEDED FOR MILD PAIN Follow-up/Referrals: Rafael Toscano DO [Primary Care Provider, Internal Medicine]
--- OUTSIDE RECORDS SUMMARY | 2025-05-12 13:39 | XMS_ITS | Clinical Summary ---
Author Organization [facility] Address [address] [place] [address] Care Team Providers Care Hot Dog Vendor Name Role Phone Rafael Toscano Primary Care Provider [phone] Source Comments [facility],non-owned Affiliates and Associated Physician Practices is amultiple site organization consisting of ambulatory clinics and hospital sitesin [place], [place], [place] and [place]. This disclosure is being madepursuant to the Care Everywhere program and may not contain all information available regarding this patient. Last updated 18.[facility] Allergies No known active allergies Medications * Be aware that medications may not be up to date on this document. Alwaysverify current medications with the patient. Cholecalciferol (VITAMIN D-3) 1000 UNITS Take 1 (one) capsule by mouth DAILY 7 Active calcium carbonate (CALTRATE) 600 MG tablet Take 1 (one) tablet by mouth daily with food 7 Active Vitamins/Mineral s TABS Take 1 (one) tablet by mouth DAILY 7 Active artificial tears (NATURAL BALANCE TEARS) 0.4 % opthalmic solution 1 (one) drop by Ophthalmic route as needed Active meloxicam (MOBIC) 15 MG tablet Take 1 (one) tablet by mouth once daily 0 Active lisinopril (PRINIVIL; ZESTRIL) 10 MG tablet Take 1 (one) tablet by mouth once daily 0 Active omeprazole (PRILOSEC) 40 MG capsule Take 1 (one) capsule by mouth daily before breakfast 0 Active Misc Natural Products (GLUCOSAMINE CHOND MSM FORMULA PO) Take 1 capsule by mouth 3 times daily Active pravastatin (PRAVACHOL) 40 MG tablet Take 1 (one) tablet by mouth once daily 2 Active acetaminophen CR (Tylenol 8 Hour Arthritis Pain) 650 MG tablet Take 1 (one) tablet by mouth every 8 hours as needed for Pain Active ibandronate (Boniva) 150 MG tablet TAKE 1 TABLET BY MOUTH ONCE EVERY MONTH 4 Active triamcinolone acetonide (Kenalog) 0.1 % ointmentIndicati ons:Rash and other nonspecific skin eruption APPLY TOPICALLY TO AFFECTED AREA ON RIGHT TOMPKINS TWICE DAILY NEEDED. OKAY TO USE ON SPLITS ON HAND TWICE DAILY NEEDED FOR 30 DAYS 45 g 5 Active Active Problems Problem Noted Date Diagnosed Date Dermatofibroma of right upper arm 03/28/2021 Epidermoid cyst 03/28/2021 Actinic keratosis 03/28/2021 Other seborrheic keratosis 03/28/2021 Multiple benign melanocytic nevi of upper extremity, lower extremity, and trunk 03/28/2021 Lentigines 03/28/2021 History of melanoma in situ 03/28/2021 Personal history of malignant melanoma of skin 0 09/24/2014 Melanocytic nevus 08/17/2014 Inflamed seborrheic keratosis 01/09/2014 Osteoporosis 10/30/2013 Overview (09/03/2020): Osteoporosis Benign neoplasm of skin of trunk 01/07/2013 Gastroesophageal reflux disease 11/02/2012 Overview (09/03/2020): GERD (gastroesophageal reflux disease) Hypercholesterolemia 11/02/2012 Overview (09/03/2020): Hypercholesteremia Hypertension 11/02/2012 Overview (09/03/2020): Hypertension Impaired fasting glucose 11/02/2012 Overview (09/03/2020): Fasting hyperglycemia Scar 09/28/2011 Tear film insufficiency 09/25/2011 Nuclear sclerotic cataract, bilateral Immunizations Immunization Administration Dates Next Due INFLUENZA VACCINE, TRIV. (AF LURIA, FLUZONE TRIVALENT; 6MO+) (IIV3) 06/24/2014,07/10/2012 INFLUENZA VACCINE 06/17/2021, 0,06/18/2019,2017,07/10/2013 INFLUENZA VACCINE, HIGH-DOSE , QUADR. (FLUZONE HIGH-DOSE QUADRIVALENT; 65Y+), 0.7 ML (HD-IIV4) 06/03/2020,07/10/2013 PNEUMOCOCCAL PPSV23 11/12/2013 Pneumococcal Pcv13 Conj 07/06/2020 TDAP (7yrs+) 12/30/2020,11/04/2010 ZOSTER VACCINE, LIVE 10/12/2013,09/15/2013 Zoster Hzv Vacc Recombinant Inj Im 04/03/2019, Family History Medical History Relation Name Comments None Known Brother Cancer Father lung & prostate Cataract Father None Known Maternal Aunt None Known Maternal Grandfather None Known Maternal Grandmother None Known Maternal Uncle Cataract Mother None Known Other None Known Paternal Aunt None Known Paternal Grandfather None Known Paternal Grandmother None Known Paternal Uncle None Known Sister Allergy (Severe) Neg Hx Asthma Neg Hx CVA Neg Hx Cancer - Breast Neg Hx Cancer - Other Neg Hx Cancer - Skin, Melanoma Neg Hx Cancer - Skin, Non Melanoma Neg Hx Eczema Neg Hx Glaucoma Neg Hx Hemophilia Neg Hx Macular Degeneration Neg Hx Psoriasis Neg Hx Rashes/Skin Problems Neg Hx Relation Name Status Comments Brother Father Maternal Aunt Maternal Grandfather Maternal Grandmother Maternal Uncle Mother Other Paternal Aunt Paternal Grandfather Paternal Grandmother Paternal Uncle Sister Social History Tobacco Use Types Packs/Day Years Used Date Smoking Tobacco: Never Smokeless Tobacco: Never Tobacco Cessation:Counseling Given: Not Answered Alcohol Use Standard Drinks/Week Comments Yes 0 (1 standard drink = 0.6 oz pur e alcohol) very seldom. Comments Unknown Sex and Gender Information Value Date Recorded Sex Assigned at Not on file Legal Sex Female 5:15 PM ROUSTAB[employer]W Gender Identity Not on file Sexual Orientation Not on file Last Filed Vital Signs Vital Sign Reading Time Taken Comments Blood Pressure 157/70 01/16/2019 12:41 PM CDT Pulse 64 01/16/2019 12:41 PM CDT Temperature 36.8 C (98.2 F) 01/16/2019 12:31 PM CDT Respiratory Rate 13 01/16/2019 12:4 1 PM CDT Oxygen Saturation 99% 01/16/2019 12: 41 PM CDT Inhaled Oxygen Concentration 21% 10/2018 12:41 PM CDT Weight 69.8 kg (153 lb 12.8 oz) 019 10:39 AM CDT Height 162.6 cm (5' 4) 01/16/2019 10:3 9 AM CDT Body Mass Index 26.4 01/16/2019 10:39 AM CDT Plan of Treatment Upcoming Encounters Date Type Department Care Team (Late st Contact Info) Description 12/11/2025 10:20 AM CDT Office Visit [facility] - General Dermatology [address], [facility] [address] [place] [address] Eva Gamino MD [address] [facility] [address] [place] [address] Health Maintenance Due Date Last Done Comments BONE DENSITY TESTING 1945 HEPATITIS C SCREENING 04/07/1965 Respiratory Syncytial Virus (RSV) Vaccine Pt: or over 60 yrs (1 - 1-dose 75+ series) 2022 COVID-19 VACCINE (3 - 2023- season) 2024 11/03/2020, 10/14/2020 DEPRESSION SCREENING 09/17/2024 MEDICARE AWV CALENDAR YEAR 2024 INFLUENZA VACCINE (#1) 2025 , 07/06/2020, 06/03/2020, Additional history exists DTAP/TDAP/TD VACCINES (3 - Td or Tdap) 12/30/2030 12/30/2020, 11/04/2010 ZOSTER VACCINE Completed 04/03/2019, 11/17, 10/12/2013, Additional history exists PNEUMOCOCCAL VACCINE 50+ Completed 07/06/2020, 10/19 HEPATITIS B VACCINE Aged Out No longe r eligible based on patient's age to complete this topic HIB VACCINE Aged Out No longer eligi ble based on patient's age to complete this topic HPV VACCINE Aged Out No longer eligi ble based on patient's age to complete this topic MENINGOCOCCAL (Group B) VACCINE SHARED DECISION-MAKING Aged Out No longer eligible based on patient's age to complete this topic MENINGOCOCCAL GROUPS A/C/Y/W VACCINE Aged Out No longer eligible based on patient's age to complete this topic Medical Devices Implanted Type Area Donor Services Specialist Device Identifier Shelf Expiration Date Model / Serial / Lot Lens Iol 0 D +24.5 Migue Mod L Acrsf Iq - [id number] Implanted:Qty: 1 on 01/09/2019 by Wali Coronel MD at [facility] Right: [employer] 03/16/2021 [id number] / [id number] / Lens Iol 0 D +25 Migue Mod L Acrsf Iq - [id number] Implanted:Qty: 1 on 01/16/2019 by Wali Coronel MD at [facility] Left: Eye [employer] 04/16/2020 [id number] / [id number] / Insurance Advance Directives * Full Code (Latest Code Status on File) Date Activated Date Inactivated Comments 01/16/2019 12:51 PM 01/16/2019 2:05 PM Care Teams Hot Dog Vendor Relationship Specialty Start Date End Date Rafael Toscano DO [address] [place] [address] PCP - General Internal Medicine 12/09/24
--- OUTSIDE RECORDS SUMMARY | 2025-05-12 13:39 | XMS_ITS | Encounter Summary ---
Author Organization [facility] Address [address] [place] [address] Care Team Providers Care Sand Polisher Name Role Phone Olegario Storey DO Primary Care Provider [phone] Rafael Toscano DO Primary Care Provider [phone] Encounter Details Date Type Department Care Team (Late st Contact Info) Description 11/14/2023 Telephone [facility] - Dermatology [address] [place] [address], [place] [id number] Eva Gamino MD [address] [place] [address] [address] [place] [address] Social History Tobacco Use Types Packs/Day Years Used Date Smoking Tobacco: Never Smokeless Tobacco: Never Alcohol Use Standard Drinks/Week Comments Yes 0 (1 standard drink = 0.6 oz pur e alcohol) very seldom. 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 Answer Date of Assessment Author No 01/16/2019 12:36 PM CDT Dominga Mobley RN * Is person blind or have serious difficulty seeing? Answer Date of Assessment Author No 01/16/2019 12:36 PM MINAT Dominga Mobley RN * Does person have serious difficulty walking/climbing stairs? Answer Date of Assessment Author No 01/16/2019 12:36 PM CDT Dominga Mobley RN * Does person have difficulty dressing/bathing? Answer Date of Assessment Author No 01/16/2019 12:36 PM CDT Dominga Mobley RN * Does person have difficulty doing errands alone? Answer Date of Assessment Author No 01/16/2019 12:36 PM CDT Dominga Mobley RN documented as of this encounter Mental Status * Does person have difficulty concentrating/remembering/making decisions? Answer Entry Date Author No 01/16/2019 12:36 PM CDT Dominga Mobley RN documented in this encounter Miscellaneous Notes * Telephone Encounter - Edita Hanna - 11/14/2023 1:06 PM CST Called to reschedule pt no answer I left a voicemail message and the telephone number for her to reschedule. IT RISK OFFICER documented in this encounter Plan of Treatment Upcoming Encounters Date Type Department Care Team (Late st Contact Info) Description 12/11/2025 10:20 AM CDT Office Visit [facility] - General Dermatology [address], [address] [place] [address] Eva Gamino MD [address] [facility] [address] [place] [address] documented as of this encounter Visit Diagnoses Not on filedocumented in this encounter Care Teams Sand Polisher Relationship Specialty Start Date End Date Olegario Storey DO [address] [place] [address] PCP - General 08/17/14 12/08/24 Rafael Toscano DO [address] [place] [address] PCP - General Internal Medicine 12/09/24 documented as of this encounter
== END 2025-05-12 17:10 | disposition short-term general hospital (02) ==
PROVIDERS: Emergency Provider Physician Assistant; PCP Internal Medicine
DX: S72.001A Fracture of unspecified part of neck of right femur, initial encounter for closed fracture (principal); R00.1 Bradycardia, unspecified; M19.90 Unspecified osteoarthritis, unspecified site; E78.5 Hyperlipidemia, unspecified; W01.0XXA Fall on same level from slipping, tripping and stumbling without subsequent striking against object, initial encounter
CPT/HCPCS: 36415; 51702; 71045; 73502; 73552; 80053; 85025; 85610; 85730; 86850; 86880; 86900; 86901; 86902; 93005; 96374; 96376; 99285; J1171; J2405